=== PATIENT | male | born 1960 | race Caucasian/White ===

== ENCOUNTER → 2017-12-16 11:33 | Outpatient (CLI) | payer MEDICAID, SELFPAY ==
--- NOTE | 2017-12-16 16:44 | STRESSREP_ITS ---
Stress Test Report Treadmill EKG results: Resting EKG: Sinus bradycardia, normal intervals, no evidence of previous myocardial infarction. Treadmill EKG: The patient exercised according to Gerard protocol for 6 minutes and 16 seconds achieving a maximum workload of 7.30 METS. Resting heart rate was initially 54 beats a minute and catherine to maximum 142 bpm which represents 87 % of the maximal age directed heart rate. Resting blood pressure is 136/90, and catherine to maximum 150/80. Test was terminated due to the same and a target heart rate and knee tightness. During exercise the patient's heart rate increased as expected. Patient had no dynamic EKG changes to suggest ischemia. No arrhythmias noted. Conclusions: Normal adequate treadmill EKG. Negative for ischemia by EKG criteria. No anginal symptoms noted. No arrhythmias noted. Appropriate blood pressure response to exercise. Below average exercise capacity for age. Patient tolerated the procedure well. No complications.
== END ==
PROVIDERS: Family Provider Family Medicine; PCP Family Medicine; Visit Provider Internal Medicine Cardiovascular Disease
DX: R07.9 Chest pain, unspecified (principal); R06.09 Other forms of dyspnea
CPT/HCPCS: 93017

== ENCOUNTER → 2018-07-22 10:39 | Outpatient (CLI) | payer MEDICAID, SELFPAY ==
[2018-07-22 13:10] LABS: Absolute Lymphocyte Count 1.48 X10^3/ul (0.83-4.51); Absolute Neutrophil Count 3.8 X10^3/uL (2.0-7.7); Basophil# 0.03 X10^3/uL; Basophil% 0.5 % (0-1); Eosinophils% 1.7 % (0-5); Hematocrit 43.2 % (40-54); Hemoglobin 13.8 g/dl (13.0-16.5); Lymphocyte # 1.48 X10^3/ul (4.0); Lymphocyte % 25.6 % (19-41); Mean Corp Hgb Conc 31.9 g/gl (32-36); Mean Corpuscular Hgb 30.5 pg (27.0-32.0); Mean Corpuscular Volume 95.6 fL (80-94); Monocyte# 0.36 X10^3/uL; Monocyte% 6.2 % (0-10); Neutrophil % 65.8 % (47-70); Platelet Count 335 K/mm3 (150-450); RBC Distribution Width SD 45.4 fl (35.1-43.9); Red Blood Count 4.52 M/mm3 (4.6-6.2); White Blood Count 5.8 K/mm3 (4.4-11.0)
[2018-07-22 13:11] LABS: POSITIVE COUNT NO; POSITIVE DIFFERENTIAL NO; POSITIVE MORPHOLOGY NO
[2018-07-22 13:22] LABS: Vitamin D,25 Hydroxy 32.5 ng/mL (29.95-100.01)
[2018-07-22 13:24] LABS: ALB/GLOB Ratio 1.2 RATIO (0.9-2.4); AST(SGOT) 23 U/L (15-37); Alanine Aminotransfer ALT/SGPT 30 U/L (16-61); Albumin, Serum 3.9 g/dL (3.2-5.0); Alkaline Phosphatase 51 U/L (45-117); Anion Gap 6 (5-15); BUN 16 mg/dL (7-18); BUN/Creat Ratio 15.8 RATIO (10-20); Calcium,Total 8.9 mg/dL (8.5-10.1); Chloride 106 mmol/L (98-107); Creatinine, Serum 1.01 mg/dL (0.70-1.30); EST Glomerular Filtration Rate 80 mL/min (>60); Est Glom Filt Rate - Afr Amer 97 mL/min (>60); Globulin 3.2 g/dL (2.2-4.2); Glucose 77 mg/dL (74-106); Potassium 4.1 mmol/L (3.5-5.1); Protein, Total 7.1 g/dL (6.4-8.2); Sodium Level 140 mmol/L (136-145); Thyroid Stim Hormone (TSH) 1.73 uIU/mL (0.358-3.74)
[2018-07-25 09:04] LABS: Hep C Antibodies <0.1 s/co ratio (0.0-0.9)
== END ==
PROVIDERS: Visit Provider Family Medicine Geriatric Medicine
DX: Z00.00 Encounter for general adult medical examination without abnormal findings (principal); E55.9 Vitamin D deficiency, unspecified; Z13.89 Encounter for screening for other disorder
CPT/HCPCS: 36415; 80053; 82306; 84443; 85025; 86803

== ENCOUNTER → 2018-07-28 07:07 | Outpatient (CLI) | payer MEDICAID, SELFPAY ==
--- NOTE | 2018-07-28 07:11 | CT_ITS ---
STUDY: LOW DOSE CT LUNG CANCER SCREENING REASON FOR EXAM: Male, 57 years old. 100 pack-year history quit 3 years ago. RADIATION DOSAGE (If Supplied By Facility): CTDIvol = ( 3.02 ) mGy, DLP = ( 100.05 ) mGycm TECHNIQUE: No contrast was administered. Low dose technique was utilized (average mAS-38 and kVp 120). 1.25 mm axial source images with a slice interval of 1.25-mm were reconstructed in lung windows. 2.5 mm axial source images with a slice interval of 2.5-mm were reconstructed in lung windows. 5.0 mm axial source images with a slice interval of 5.0-mm were reconstructed in soft tissue windows. Nodule measured using lung windows on PACS and/or independent workstation with automated measurement of minimum and maximum diameter. Nodule measurement reported as average diameter rounded to the nearest whole number. Growth is defined as an increase ins size of greater than 1.5 mm. COMPARISON: None. NODULES: Total lung nodules (excluding granulomas): 0 Emphysema: There is no emphysematous changes of lungs. Endobronchial lesion: None Aorta: There is minimal atherosclerotic changes of the thoracic aorta without aneurysm. Coronary arteries: There are coronary artery calcifications. Heart: The heart is normal in size. Pulmonary artery: Normal Mediastinal nodes: None Other chest and abdominal findings: There are minimal dependent changes of the thoracic spine. CT/Low Dose CT Lung Screening IMPRESSION: Lung-RADS category 1 - Continue annual screening with LDCT in 12 months. IMPORTANT NOTES FOR USE: ACR Lung-RADS Version 1.0 Assessment Categories Release Date: October 23, 2013 Category: Coded 0-4 bases on nodule(s) with highest degree of suspicion. Negative screen is defined as categories 1 and 2; a positive screen is defined as categories 3 and 4. Category 3 and 4A nodules that are unchanged on interval CT should be coded as category 2, and individuals returned to screening in 12 months. Category 4X: Category 3 or 4 nodules with additional imaging findings that increase the suspicion of lung cancer, such as spiculation, GGN that doubles in size in 1 year, enlarged lymph notes, etc. Category Modifiers: S (significant finding unrelated to lung cancer) and C (prior history of treated lung cancer) may be added to the 0-4 Lung-RADS Electronically Signed: Hema Wallace DO at 22:26 EST Tel [phone], Service support ,
--- NOTE | 2018-07-28 13:59 | PFT ---
INTRODUCTION: The patient is a 57-year-old male that presents for pulmonary function studies secondary to a diagnosis of shortness of breath. Respiratory therapy reports good patient effort. Bronchodilators were used during testing. INTERPRETATION: Forced expiration spirometry demonstrates no evidence of a large airways obstructive ventilatory defect. There was no significant response to aerosolized bronchodilators, based upon strict ATS criteria. Spirograms are of good quality and plateau normally. Body plethysmography was performed and reveals lung volumes to be within normal limits. Diffusing capacity by single breath CO is also within normal limits at 87% of predicted. IMPRESSION: Normal pulmonary function studies.
== END ==
PROVIDERS: Family Provider Family Medicine Geriatric Medicine; PCP Family Medicine Geriatric Medicine; Referring Provider Family Medicine Geriatric Medicine; Visit Provider Family Medicine Geriatric Medicine
DX: R06.02 Shortness of breath (principal); Z87.891 Personal history of nicotine dependence
CPT/HCPCS: 94060; 94726; 94729; G0297

== ENCOUNTER → 2018-10-31 08:46 | Outpatient (CLI) | payer MEDICARE, SELFPAY ==
[2018-10-24 08:40] VITALS: BMI 23.5
[2018-10-25 15:04] VITALS: BMI 23.5
--- NOTE | 2018-10-31 08:48 | RAD_ITS ---
CLINICAL HISTORY: Male, 58 years old. Gastroesophageal reflux disease without esophagitis. Pain upper abdomen after eating. Reflux. Feels like food gets stuck in the lower esophagus times several months. PROCEDURE: Fluoroscopically guided, air-contrast upper GI. FLUOROSCOPY TIME (if supplied): (2:34) minutes/seconds TECHNIQUE: The patient easily and readily swallowed effervescent crystals, various density barium contrast and a 13 mm barium pill. Multiple spot images were obtained during the course of the real-time examination. FINDINGS: Esophageal motility is normal. There is no esophageal stricture, web or diverticulum. There is no hiatal hernia. Free reflux was identified during the course of the real-time exam to the level of the mid thoracic esophagus with mild delayed clearing. The esophageal mucosal pattern appears unremarkable. The stomach demonstrates normal position, rotation and morphology. The gastric mucosal pattern appears normal. There is no intrinsic or extrinsic gastric masses or mass effect. Contrast readily exits the gastric outlet into unremarkable appearing duodenal bulb and duodenal C-sweep. The 13 mm barium pill passed easily and quickly from the oral cavity into the stomach. RAD/Upper GI w/BA Swallow IMPRESSION: Prominent free reflux to the level of the mid thoracic esophagus with mildly delayed clearing. No additional fluoroscopically evident pathology. Fluoroscopy time 2 minutes and 34 seconds. Electronically Signed: Sorin Lin MD at 10:42 EDT , Service support ,
== END ==
PROVIDERS: Family Provider Family Medicine Geriatric Medicine; PCP Family Medicine Geriatric Medicine; Referring Provider Surgery; Visit Provider Surgery
DX: K21.9 Gastro-esophageal reflux disease without esophagitis (principal)
CPT/HCPCS: 74246

== ENCOUNTER 2018-11-03 08:27 | Day surgery (SDC) | payer MEDICARE, SELFPAY ==
[2018-10-24 08:40] VITALS: BMI 23.5
[2018-10-25 15:04] VITALS: BMI 23.5
[2018-11-03 09:03] VITALS: BP 172/103; PULSE 55; RESP 16; TEMP 36.3; O2SAT 99
== END 2018-11-03 09:33 | disposition home or self-care (01) ==
LOC: EN 08:28
PROVIDERS: Family Provider Family Medicine Geriatric Medicine; PCP Family Medicine Geriatric Medicine; Referring Provider Surgery; Visit Provider Surgery
PROC: F00ZJWZ Instrumental Swallowing and Oral Function Assessment using Swallowing Equipment (ICD-10-PCS; CPT 43235; principal; 2018-11-03 08:55)
DX: K21.9 Gastro-esophageal reflux disease without esophagitis (principal); R10.12 Left upper quadrant pain; I10 Essential (primary) hypertension; F32.9 Major depressive disorder, single episode, unspecified; F41.9 Anxiety disorder, unspecified; Z79.1 Long term (current) use of non-steroidal anti-inflammatories (NSAID); Z79.899 Other long term (current) drug therapy; Z87.891 Personal history of nicotine dependence
CPT/HCPCS: 91010

== ENCOUNTER 2018-11-11 06:05 | Day surgery (SDC) | payer MEDICARE, SELFPAY ==
[2018-10-24 08:40] VITALS: BMI 23.5
[2018-10-25 15:04] VITALS: BMI 23.5
[2018-11-11] VITALS (7 sets, daily range): BP systolic 123–138; BP diastolic 81–93; PULSE 57–67; RESP 16–18; TEMP 36.5–36.6; O2SAT 95–100; BMI 23.9
--- NOTE | 2018-11-11 | GASB_PTH ---
PATIENT: MATHEUS SIMPSON LOC: EN U#:[id number] AGE/SX: 58/M ROOM: RE11/11/[address]: Dr. Dave Horowitz MD : 1960 BED: DIS: 11/11/2018 SPEC #: [id number] RECD: 11/11/18 12:40 STATUS: ROBERTA MELL #: [id number] BEATRIZ: 11/11/18 00:[address]: Dave Horowitz DEPT: SURGICAL PATHOLOGY RECD BY: Paulino Rick ENTERED: 11/11/18 12:40 SP TYPE: Gastric Bx OTHR DR: Dr. Donato Tabares MD Tissues: A - Gastric mucous membrane B - Gastric mucous membrane Procedures: Special Stain Group II Surgery Specimen Level IV Alcian Blue/PAS (control) HEADER OPERATION: EGD ([facility]) PRE-OP DIAGNOSIS: GERD TISSUE SUBMITTED: A - Antrum biopsy for H. pylori, B - GE junction biopsy MICROSCOPIC DIAGNOSIS A. Gastric antrum, biopsy: Mild chronic gastritis. See comment. B. Gastroesophageal junction, biopsy: Mild chronic inflammation. No evidence of intestinal metaplasia. See comment. AM:gertrudis 11/14/18 COMMENT A. The results of immunohistochemistry for Helicobacter pylori will be reported separately ([id number]). B. Alcian blue/PAS stain with matched control supports the above diagnosis. MICROSCOPIC DESCRIPTION Slides are reviewed. GROSS DESCRIPTION A - Received in fixative is one container labeled with the patient's name and designated antrum biopsy for H. pylori. The specimen consists of two irregular fragments of light tuttle soft tissue that in aggregate measure 0.3 x 0.2 x 0.1 cm. The specimen is totally submitted in one cassette. B - Received in fixative is one container labeled with the patient's name and designated GE junction biopsy. The specimen consists of one irregular fragment of light tuttle soft tissue that measures 0.2 x 0.1 x 0.1 cm. The specimen is totally submitted in one cassette. / CE:gertrudis 11/11/18 TC:3 CPT: 44920 x2, 04844
--- NOTE | 2018-11-11 07:07 | PCM.HP.BLA ---
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 Is patient in pain?: Yes (LUQ ABDOMEN AND ESOPHAGUS) Allergies No Known Allergies Allergy (Verified 10/24/18 08:40) Medications Naproxen [Naprosyn] 500 mg PO BID PRN PRN #20 tab 11/26/14 [Rx Confirmed 10/24/18] bupropion HCl XL 300 mg 24 hr tablet, extended release 300 mg PO QAM 10/10/18 [History Confirmed 10/24/18] cholecalciferol (vitamin D3) 1,000 unit capsule 1,000 unit PO DAILY 10/10/18 [History Confirmed 10/24/18] fluoxetine 20 mg capsule 20 mg PO DAILY 10/10/18 [History Confirmed 10/24/18] fluoxetine 40 mg capsule 40 mg PO DAILY 10/10/18 [History Confirmed 10/24/18] lisinopril 20 mg tablet 20 mg PO DAILY 10/10/18 [History Confirmed 10/24/18] pantoprazole 20 mg tablet,delayed release 20 mg PO DAILY 10/10/18 [History Confirmed 10/24/18] COUNTS INCLUDE 234 BEDS AT THE [facility] Medical History Anxiety (Acute) Bilateral headaches (Acute) Impingement of right ulnar nerve (Acute) Hypertension (Chronic) Surgical History S/P tonsillectomy (Acute) GERD (gastroesophageal reflux disease) (Acute) Family History Father Hypertension Mother Hypertension Social History Smoking Status: Former smoker alcohol intake: current alcohol intake frequency: holidays/special occasions only Alcohol type: wine substance use type: does not use what type of physical activity do you participate in: walking frequency: 5-6 times per week HPI HPI HPI: MATHEUS SIMPSON is a 58 M who presents to the office today for HPI HPI HPI: MATHEUS SIMPSON is a 58 M who presents to the office today for acid reflux. Patient reports that he has had acid reflux for years and it is not responsive to PPI. He is on Protonix 40 mg twice a day and this is not giving him relief. He still complains of significant acid reflux as well as hoarseness. Patient had a laryngoscopy and they said it was due to reflux. Patient has a history of peptic ulcer disease. He is also having left upper quadrant pain. ROS General General: No weight change or fatigue Skin Skin: Yes rash Cardio Cardiovascular: Yes high blood pressure; no murmur, pacemaker, heart disease, atrial fibrillation, heart attack, heart stent, palpitations, shortness of breat with exertion or chest pain Psych Psychiatric: Yes depression and anxiety Resp Respiratory: No shortness of breath, No sleep apnea, No cough, No COPD, No asthma, No emphysema, No wheezing Gastro Gastrointestinal: Yes abdominal pain, Yes nausea or vomiting, Yes diarrhea, No constipation, No blood in stool, Yes acid reflux, Yes hemorrhoids, No ulcers, No gallbladder problem, No black,tarry stools Man Hematologic: No blood thinners Exam Const General: cooperative Orientation: alert, oriented x3 Resp Effort & Inspection: normal respiratory effort Auscultation: clear to auscultation bilaterally Cardio Rate: regular rate Rhythm: regular rhythm Heart Sounds: no murmurs GI Inspection: non-distended Palpation: soft, nontender Assessment & Plan 1. Gastroesophageal reflux disease, esophagitis presence not specified K21.9 Plan The patient has significant acid reflux. This is not responsive to PPI. I explained the operative management of reflux with a Linda fundoplication. I explained the surgery in detail to the patient. I also explained the preoperative work-up. I will order an upper GI as well as an EGD with pH probe and esophageal manometry. Once all these tests are completed the patient will follow-up to discuss Linda fundoplication. Dave Horowitz MD Pager: [facility] [address] [place] [address], [address] [place] [address] Office:
--- NOTE | 2018-11-11 07:30 | IMM_PTH ---
PATIENT: MATHEUS SIMPSON LOC: EN U#:[id number] AGE/SX: 58/M ROOM: RE11/11/[address]: Dr. Dave Horowitz MD : 1960 BED: DIS: 11/11/2018 SPEC #: [id number] RECD: 11/14/18 10:33 STATUS: ROBERTA RERama #: [id number] BEATRIZ: 11/11/18 07:[address]: Dave Horowitz DEPT: IMMUNOHISTOCHEMISTRY RECD BY: Paris Ocampo ENTERED: 11/14/18 10:36 SP TYPE: IMMUNO OTHR DR: Dr. Donato Tabares MD Tissues: A - Stomach, NOS Procedures: H Pylori (initial) PHYSICIAN & INSTITUTION [place] [address] SPECIMEN INFORMATION: Tissue Source: A - Antrum biopsy Clinical Info: GERD Specimen Number: [id number] CPT code: 51830 METHODOLOGY: Deparaffinized sections of prefer/formalin-fixed tissue or PAP/DQ stained slides are incubated with monoclonal/polyclonal antibodies/oligonucleotide probes. Localization is made via biotin free immunoperoxidase method. Appropriate controls are performed and reacted as expected. Results on target cell population are indicated in the following table: RESULTS: ANTIBODY / CLONE RESULT Block A H Pylori (polyclonal) negative These tests were developed and their performance characteristics determined by [facility]. They may not have been cleared or approved by the U.S. Food and Drug Administration. The FDA has determined that such clearance or approval is not necessary. INTERPRETATION: A. Antrum, biopsy: Negative for Helicobacter pylori organisms. AM:gertrudis 11/14/18
--- NOTE | 2018-11-11 07:41 | OP.ENDO_ITS ---
11/11/2018 Donato Tabares MD [address] [place] [address] Re : Upper GI endoscopy procedure for Pablo Harper Dear Dr. Tabares This procedure was performed on Sunday, November 11, 2018. My impressions and recommendations are as follows: Impressions : - Normal esophagus. - Normal stomach. - Normal examined duodenum. - Z-line regular, 40 cm from the incisors. - Biopsies were taken with a cold forceps for Helicobacter pylori testing. - Biopsies were taken with a cold forceps for histology at the gastroesophageal junction. Recommendations : - Resume previous diet. - Continue present medications. - Return to my office in 1 week. My findings are described in the full procedure note, which is enclosed. If I can be of further assistance, please feel free to contact me at Doctor phone number(s): , Work: . Sincerely, Dave Horowitz MD 11/11/2018 7:41:08 AM This report has been signed electronically.
== END 2018-11-11 08:20 | disposition home or self-care (01) ==
LOC: EN 06:05 → AC 06:06
PROVIDERS: Family Provider Family Medicine Geriatric Medicine; PCP Family Medicine Geriatric Medicine; Referring Provider Surgery; Visit Provider Surgery
DX: K21.0 Gastro-esophageal reflux disease with esophagitis (principal); K29.50 Unspecified chronic gastritis without bleeding; R10.12 Left upper quadrant pain; I10 Essential (primary) hypertension; F32.9 Major depressive disorder, single episode, unspecified; F41.9 Anxiety disorder, unspecified; Z79.1 Long term (current) use of non-steroidal anti-inflammatories (NSAID); Z79.899 Other long term (current) drug therapy; Z87.11 Personal history of peptic ulcer disease; Z87.891 Personal history of nicotine dependence
CPT/HCPCS: 43239; 88305; 88313; 88342; J7120

== ENCOUNTER → 2019-01-25 08:46 | Outpatient (CLI) | payer MEDICARE, MEDICAID, SELFPAY ==
[2018-11-23 08:52] VITALS: BMI 23.9
[2019-01-25 11:59] LABS: Absolute Lymphocyte Count 1.25 X10^3/uL (0.83-4.51); Absolute Neutrophil Count 3.1 X10^3/uL (2.0-7.7); Basophil# 0.01 X10^3/uL; Basophil% 0.2 % (0-1); Eosinophil# 0.09 X10^3/uL; Eosinophils% 1.8 % (0-5); Hematocrit 47.4 % (40-54); Hemoglobin 15.7 g/dL (13.0-16.5); Lymphocyte # 1.25 X10^3/ul (4.0); Lymphocyte % 25.3 % (19-41); Mean Corp Hgb Conc 33.1 g/dL (32-36); Mean Corpuscular Volume 96.7 fL (80-94); Mean Platelet Vol. 8.9 fl (6.2-12.0); Monocyte% 10.1 % (0-10); NRBC Flagged by Analyzer 0 % (0-5); Neutrophil # 3.09 X10^3/uL (2.7-7.7); Neutrophil % 62.4 % (47-70); Platelet Count 294 K/mm3 (150-450); RBC Distribution Width CV 13.2 % (11.6-14.6); RBC Distribution Width SD 47.2 fl (35.1-43.9)
[2019-01-25 12:27] LABS: AST(SGOT) 23 U/L (15-37); Alanine Aminotransfer ALT/SGPT 34 U/L (16-61); Albumin, Serum 3.5 g/dL (3.2-5.0); Alkaline Phosphatase 116 U/L (45-117); Anion Gap 6 (5-15); BUN 17 mg/dL (7-18); BUN/Creat Ratio 18.8 RATIO (10-20); Calcium,Total 8.7 mg/dL (8.5-10.1); Chloride 106 mmol/L (98-107); EST Glomerular Filtration Rate 91 mL/min (>60); Est Glom Filt Rate - Afr Amer 110 mL/min (>60); Globulin 3.5 g/dL (2.2-4.2); Glucose 92 mg/dL (74-106); Potassium 4.2 mmol/L (3.5-5.1); Sodium Level 141 mmol/L (136-145); Thyroid Stim Hormone (TSH) 1.71 uIU/mL (0.358-3.74)
[2019-01-25 12:29] LABS: Vitamin D,25 Hydroxy 25.6 ng/mL (29.95-100.01)
== END ==
PROVIDERS: Family Provider Family Medicine Geriatric Medicine; PCP Family Medicine Geriatric Medicine; Visit Provider Family Medicine Geriatric Medicine
DX: I10 Essential (primary) hypertension (principal); E55.9 Vitamin D deficiency, unspecified
CPT/HCPCS: 36415; 80053; 82306; 84443; 85025

== ENCOUNTER 2021-11-19 13:57 | Emergency (ER) | payer MEDICARE, MEDICAID, SELFPAY ==
[2021-11-19] VITALS (7 sets, daily range): BP systolic 142; BP diastolic 100; PULSE 74–99; RESP 13–16; TEMP 36.6; O2SAT 97–99; BMI 24.0
--- NOTE | 2021-11-19 15:07 | EKG12_ITS ---
Test Reason : HTN Blood Pressure : / mmHG Vent. Rate : 089 BPM Atrial Rate : 089 BPM P-R Int : 140 ms QRS Dur : 086 ms QT Int : 382 ms P-R-T Axes : 062 -42 064 degrees QTc Int : 464 ms Normal sinus rhythm Left axis deviation Nonspecific ST abnormality Abnormal ECG Confirmed by JUDY ALVARADO, AVRIL ([id number]), scientific editor CARLTON MARTINEZ ([id number]) on 11/20/2021 11:06:59 AM Referred By: BARAK Confirmed By:AVRIL KIM MD
--- NOTE | 2021-11-19 15:08 | EX.ED.VIS.PS ---
HPI HPI - Psych History of Present Illness Chief Complaint: Mental Health Narrative Narrative: Patient presented with homicidal ideation. He has past medical history of depression and anxiety and panic attacks, along with hypertension. He states he was at the store today and saw a child's toy, shotgun with a plunger on the end he asked the retail store clerk to put it away because he began having homicidal thoughts and rage, wanting to use it and hurt people. He states he is frustrated because his girlfriend recently had a stroke, and he feels they are getting a runaround from the doctor because she is only on aspirin. He states he ran to [email or web address] and ran out of the store because he was afraid that he was going to hurt someone. He denies any suicidal ideation. No auditory hallucinations or visual hallucinations. However, he did state that this shotgun that was out that he told the car restorer to put away had a plunger at the end of it and it read redneck down the side. [facility] Medical History Anxiety Bilateral headaches Hypertension Impingement of right ulnar nerve Home Medications bupropion HCl 300 mg 24 hr tablet, extended release 300 mg PO QAM 10/10/18 [History Last Taken Unknown] cholecalciferol (vitamin D3) 25 mcg (1,000 unit) capsule 1,000 unit PO DAILY 10/10/18 [History Last Taken Unknown] fluoxetine 20 mg capsule 20 mg PO DAILY 10/10/18 [History Last Taken Unknown] fluoxetine 40 mg capsule 40 mg PO DAILY 10/10/18 [History Last Taken Unknown] lisinopril 20 mg tablet 20 mg PO QHS 10/10/18 [History Last Taken Unknown] pantoprazole 20 mg tablet,delayed release 20 mg PO DAILY 10/10/18 [History Last Taken 11/11/18] Allergy/AdvReac Type Severity Reaction Status Date / Time No Known Allergies Allergy Verified 11/19/21 13:58 Family History Father Hypertension Mother Hypertension Surgical History GERD (gastroesophageal reflux disease) History of esophagogastroduodenoscopy (EGD) S/P tonsillectomy Social History Smoking Status: Former smoker alcohol intake: current alcohol intake frequency: holidays/special occasions only Alcohol type: wine substance use type: does not use what type of physical activity do you participate in: walking frequency: 5-6 times per week ROS ROS ED ROS Narrative Constitutional: No fever, no chills. HEENT: No sore throat. No neck pain. No loss of vision. No rhinorrhea. Cardiovascular: No chest pain. No palpitations. No pedal edema. Respiratory: No cough, no shortness of breath. Abdominal: No abdominal pain. No nausea. No vomiting. Genitourinary: No dysuria. No hematuria. Musculoskeletal: No myalgias. No arthralgias. Neurologic: No headaches. No dizziness. No lightheadedness. Skin: No rash. No change in color. Psychiatric: Positive depression. Positive anxiety with panic attacks. Homicidal behavior and feelings of rage. Mild flight of ideas. EXAM Physical Exam Narrative Exam Narrative: Afebrile. Vital signs noted. HEENT: Normocephalic. Atraumatic. PERRL, EOMI. Neck soft and supple. No point tenderness or step off. Cardiovascular: Regular rate and rhythm. No murmurs, rubs, or gallops appreciated. Respiratory: No tachypnea. Lungs clear to auscultation bilaterally. Gastrointestinal: Abdomen soft, nontender, with normoactive bowel sounds. No rebound or guarding. Neurological: Awake. Alert. Nonfocal, nonlateralizing. Skin: No rash. Normal color. No pallor. Musculoskeletal: No pedal edema. Full range of motion extremities. Psychiatric: Flat affect/depressed. Continued generalized homicidal thoughts. States has feelings of rage. Const Vital Signs: 11/19/21 13:58 11/19/21 15:30 11/19/21 17:21 Temperature 98 F Temperature Source Temporal Pulse Rate 99 74 Respiratory Rate 14 16 16 Blood Pressure 142/100 H Blood Pressure Mean 114 Pulse Ox 97 99 Oxygen Delivery Method Room Air Room Air 11/19/21 18:25 11/19/21 19:21 11/19/21 20:23 Temperature Temperature Source Pulse Rate 79 Respiratory Rate 16 16 16 Blood Pressure Blood Pressure Mean Pulse Ox 99 99 Oxygen Delivery Method Room Air Room Air 11/19/21 22:13 Temperature Temperature Source Pulse Rate Respiratory Rate 13 Blood Pressure Blood Pressure Mean Pulse Ox 99 Oxygen Delivery Method Room Air MDM MDM MDM Narrative Medical decision making narrative: Medical screening labs were obtained. EKG demonstrates normal sinus rhythm at 89 bpm without ectopy or acute ST changes. No STEMI. CBC is grossly normal with a normal white count of 7.7, hemoglobin normal at 15.6. Platelet count normal at 291. Electrolyte panel shows potassium slightly low at 3.3, normal creatinine of 0.9, glucose 94 with an anion gap of 7. His urine for drugs of abuse is positive for MDMA. Ethyl alcohol level is pending. His mild homicidal ideation may be secondary to ecstasy use. I do feel that he is medically cleared for evaluation by crisis as his ethanol level is negative. According to the crisis counselor, patient was a walk-in to the crisis center. He had already been evaluated and sent here for medical clearance. He was put on 72-hour hold and is pending transfer to a psychiatric facility. He will be signed out to the oncoming physician to make final disposition. He is in stable condition. Lab Data Attestation: I reviewed the patient's lab results. Labs: Laboratory Results - last 24 hr 11/19/21 11/19/21 11/19/21 15:24 15:24 15:24 WBC 7.7 RBC 4.80 Hgb 15.6 Hct 45.0 MCV 93.8 MCH 32.5 H MCHC 34.7 RDW Std Deviation 41.4 RDW Coeff of Sudhakar 12.0 Plt Count 291 MPV 8.4 Immature Gran % (Auto) 0.300 Neut % (Auto) 77.2 H Lymph % (Auto) 15.7 L [place] % (Auto) 6.0 Eos % (Auto) 0.4 Baso % (Auto) 0.4 Absolute Neuts (auto) 5.9 Absolute Lymphs (auto) 1.20 Nucleated RBC % 0 Sodium 136 Potassium 3.3 L Chloride 101 Carbon Dioxide 28.0 Anion Gap 7 BUN 10 Creatinine 0.91 Estim Creat Clear Calc 78.69 Est GFR (MDRD) Af Amer 108 Est GFR (MDRD) Non-Af 89 BUN/Creatinine Ratio 11.0 Glucose 94 Calcium 9.4 Total Bilirubin 0.70 AST 20 ALT 28 Alkaline Phosphatase 94 Total Protein 7.5 Albumin 3.7 Globulin 3.8 Albumin/Globulin Ratio 1.0 Urine Opiates Screen Urine Methadone Screen Ur Barbiturates Screen Ur Phencyclidine Scrn Ur Amphetamines Screen MDMA (Ecstasy) Screen U Benzodiazepines Scrn Urine Cocaine Screen U Cannabinoids Screen Ur Drug Screen Comment Ethyl Alcohol 3.0 11/19/21 15:30 WBC RBC Hgb Hct MCV MCH MCHC RDW Std Deviation RDW Coeff of Sudhakar Plt Count MPV Immature Gran % (Auto) Neut % (Auto) Lymph % (Auto) [place] % (Auto) Eos % (Auto) Baso % (Auto) Absolute Neuts (auto) Absolute Lymphs (auto) Nucleated RBC % Sodium Potassium Chloride Carbon Dioxide Anion Gap BUN Creatinine Estim Creat Clear Calc Est GFR (MDRD) Af Amer Est GFR (MDRD) Non-Af BUN/Creatinine Ratio Glucose Calcium Total Bilirubin AST ALT Alkaline Phosphatase Total Protein Albumin Globulin Albumin/Globulin Ratio Urine Opiates Screen NEGATIVE Urine Methadone Screen NEGATIVE Ur Barbiturates Screen NEGATIVE Ur Phencyclidine Scrn NEGATIVE Ur Amphetamines Screen NEGATIVE MDMA (Ecstasy) Screen POSITIVE H U Benzodiazepines Scrn NEGATIVE Urine Cocaine Screen NEGATIVE U Cannabinoids Screen NEGATIVE Ur Drug Screen Comment Ethyl Alcohol Discharge Plan Triage Chief Complaint: Mental Health ED Provider: Will Solorzano Dx/Rx/DC Orders Clinical Impression: Homicidal ideations, Psychosis Prescriptions: No Action cholecalciferol (vitamin D3) 1,000 unit capsule 1,000 unit capsule 1,000 unit PO DAILY RF: 0 fluoxetine 20 mg capsule 20 mg PO DAILY RF: 0 fluoxetine 40 mg capsule 40 mg PO DAILY RF: 0 lisinopril 20 mg tablet 20 mg PO QHS RF: 0 pantoprazole 20 mg tablet,delayed release (DR/EC) 20 mg PO DAILY RF: 0 bupropion HCl [Wellbutrin XL] 300 mg tablet extended release 24 hr 300 mg PO QAM RF: 0 Primary Care Provider: Donato Tabares Chi Referrals: Donato Tabares Chi, MD [Primary Care Provider] - Disposition Disposition: Psychiatric Hospital or Unit
[2021-11-19 15:34] LABS: Absolute Neutrophil Count 5.9 X10^3/uL (2.0-7.7); Basophil# 0.03 X10^3/uL; Basophil% 0.4 % (0-1); Eosinophil# 0.03 X10^3/uL; Eosinophils% 0.4 % (0-5); Hemoglobin 15.6 g/dL (13.0-16.5); Lymphocyte % 15.7 % (19-41); Mean Corp Hgb Conc 34.7 g/dL (32-36); Mean Corpuscular Hgb 32.5 pg (27.0-32.0); Mean Corpuscular Volume 93.8 fL (80-94); Mean Platelet Vol. 8.4 fl (6.2-12.0); Monocyte# 0.46 X10^3/uL; NRBC Flagged by Analyzer 0 % (0-5); Neutrophil # 5.92 X10^3/uL (2.7-7.7); Neutrophil % 77.2 % (47-70); Platelet Count 291 K/mm3 (150-450); RBC Distribution Width SD 41.4 fl (35.1-43.9); White Blood Count 7.7 K/mm3 (4.4-11.0)
[2021-11-19 15:52] LABS: AST(SGOT) 20 U/L (15-37); Alanine Aminotransfer ALT/SGPT 28 U/L (16-61); Albumin, Serum 3.7 g/dL (3.2-5.0); Alkaline Phosphatase 94 U/L (45-117); Anion Gap 7 (5-15); BUN 10 mg/dL (7-18); Calcium,Total 9.4 mg/dL (8.5-10.1); Chloride 101 mmol/L (98-107); Creatinine, Serum 0.91 mg/dL (0.70-1.30); EST Glomerular Filtration Rate 89 mL/min (>60); Est Glom Filt Rate - Afr Amer 108 mL/min (>60); Estimated Creatinine Clearance 78.69 ml/min; Globulin 3.8 g/dL (2.2-4.2); Glucose 94 mg/dL (74-106); Potassium 3.3 mmol/L (3.5-5.1); Protein, Total 7.5 g/dL (6.4-8.2); Sodium Level 136 mmol/L (136-145)
[2021-11-19 16:04] LABS: Amphetamine Urine VISTA NEGATIVE (<1000 ng/mL); Barbiturate Urine VISTA NEGATIVE (< 200 ng/mL); Benzodiazepine Urine VISTA NEGATIVE (< 200 ng/mL); Cocaine Urine VISTA NEGATIVE (< 300 ng/mL); Ecstacy Urine VISTA POSITIVE (< 500 ng/mL); Methadone Urine VISTA NEGATIVE (< 300 ng/mL); PCP Urine VISTA NEGATIVE (< 25 ng/mL); THC Urine VISTA NEGATIVE (< 50 ng/mL); Vista UDS pH Range 7
[2021-11-20] VITALS (10 sets, daily range): BP systolic 124–166; BP diastolic 65–108; PULSE 71–98; RESP 14–18; TEMP 36.6; O2SAT 95–99
== END 2021-11-20 08:54 ==
PROVIDERS: Emergency Provider Emergency Medicine; PCP Family Medicine Geriatric Medicine; Visit Provider Emergency Medicine
DX: F29 Unspecified psychosis not due to a substance or known physiological condition (principal); R45.850 Homicidal ideations; E87.6 Hypokalemia; I10 Essential (primary) hypertension; K21.9 Gastro-esophageal reflux disease without esophagitis; F32.A Depression, unspecified; F41.9 Anxiety disorder, unspecified; Z79.899 Other long term (current) drug therapy; Z87.891 Personal history of nicotine dependence
CPT/HCPCS: 80053; 80307; 82077; 85025; 87811; 93005; 99285